=== PATIENT | male | born 1940 | race Caucasian/White ===

== ENCOUNTER 2023-01-17 08:44 | Emergency (ER) | payer MEDICARE, BC ==
[~2023-01-17] VITALS: Ht 185.4 cm; Wt 115.0 kg
[~2023-01-17 08:44] MED LIST: AMLO5TAB4 PO; ASPI81TA52 PO; BENA20TA82 PO; FLO0.4C PO; GLYB2.5T4 PO; GLYB5TAB7 PO; LOP25T PO; METF500T PO; OMEP40CA21 PO; PIOG45TA5 PO; SIMV-343 PO; SITA100T11 PO; TRAZ-251 PO
[2023-01-17 08:47] VITALS: TEMP 97
[2023-01-17] MEDS ORDERED: CEPH-585 PO (09:35)
[2023-01-17 09:46] VITALS: BP 174/118; PULSE 112; RESP 20; O2SAT 97
== END 2023-01-17 09:50 | disposition home or self-care (01) ==
LOC: ER 08:44
DX: L03.221 Cellulitis of neck (principal); Z88.0 Allergy status to penicillin; Z79.899 Other long term (current) drug therapy
CPT/HCPCS: 99283